=== PATIENT | male | born 1965 | race Caucasian/White ===

== ENCOUNTER 2017-02-26 10:34 | Emergency (ER) | payer MEDICARE ==
[~2017-02-26] VITALS: Ht 177.8 cm; Wt 61.1 kg
[~2017-02-26 10:34] MED LIST: LORTA10 PO; NEUR800T PO; PROT40TA PO; SUCR1TAB PO; TIZA4 PO; VERA80TA PO
[2017-02-26 10:48] VITALS: BP 137/91; PULSE 55; RESP 18; TEMP 98; O2SAT 99
[2017-02-26] MEDS ORDERED: GABA800T PO (11:45)
[2017-02-26] MEDS ORDERED: PERC10TA27 PO (11:45)
[2017-02-26] MEDS ORDERED: LORA1TAB12 PO (11:45)
[2017-02-26] MEDS ORDERED: METO10TA PO (11:45)
[2017-02-26] MEDS ORDERED: SODIUM CHLOR 0.9% 1000 ML INJ 1,000 ML IV SCH (11:49)
--- NOTE | 2017-02-26 11:56 | PD ---
HPI Chief Complaint: GI Complaint Time Seen by Provider: 11:39 Travel History International Travel<30 days: No Contact w/Intl Traveler<30days: No Traveled to known affect area: No History of Present Illness HPI 51-year-old male complains of epigastric abdominal pain and nausea vomiting. Patient states that the pain started yesterday. Patient states the pain burning pain started throughout epigastric area with radiation to lower abdomen. Patient denies any fever chills. Patient denies any dysuria or frequency. Patient denies any headache. Patient denies any chest pain or shortness of breath. Patient has history of chronic low back pain and has been seen by neurologist and has been taking hydrocodone for back pain. Patient states that he has frequent recurrence of abdominal pain, almost monthly. Patient has been seen at [facility] for abdominal pain. Patient states that he had endoscopy done in the past. Patient states that he was told that he has peptic ulcer disease. On a scale of 1-10 the pain is a 10. PFSH Past Medical History Hx Anticoagulant Therapy: No Arthritis: Yes Autoimmune Disease: No Anxiety: Yes Depression: Yes Cancer: No Cardiovascular Problems: No High Cholesterol: Yes Cerebrovascular Accident: No Diabetes: No Endocrine: No Genitourinary: No Headaches: Yes Hepatitis: No Hiatal Hernia: No Immune Disorder: No Musculoskeletal: Yes (BACK AND NECK PAIN ; ARTHRITIS) Neurologic: No Psychiatric: No Reproductive: No Respiratory: No Migraines: No Seizures: No Thyroid Disease: No Influenza Vaccination: No Past Surgical History Body Medical Devices: SCREWS LOWER BACK POSSIBLY TAKEN OUT 11/19/13 Neurologic Surgery: Yes (POSTERIOR CERVICAL FUSION C51989; 08/27 LUMBAR FUSION) Pacemaker: No Other Surgery: Yes Social History Alcohol Use: Yes (rare) Tobacco Use: Yes (1 PPD) Substance Use: Yes (thc) Allergies-Medications (Allergen,Severity, Reaction): Coded Allergies: Tramadol (Verified Allergy, Intermediate, ITCHING, HEDACHE, 02/26/17) Meloxicam (Verified Allergy, Mild, HEADACHE, 02/26/17) Reported Meds & Prescriptions Reported Meds & Active Scripts Active Reported Lorazepam 1 Mg Tab 1 Mg PO Q6H PRN Metoclopramide (Metoclopramide HCl) 10 Mg Tab 10 Mg PO DAILY Percocet (Oxycodone-Acetaminophen) 10-325 mg Tab 1 Tab PO QID Gabapentin 800 Mg Tab 800 Mg PO QID Review of Systems General / Constitutional: No: Fever Eyes: No: Visual changes HENT: No: Headaches Cardiovascular: No: Chest Pain or Discomfort Respiratory: No: Shortness of Breath Gastrointestinal: Positive: Nausea, Vomiting, Abdominal Pain Genitourinary: No: Dysuria Musculoskeletal: No: Pain Skin: No Rash Neurologic: No: Weakness Psychiatric: No: Depression Endocrine: No: Polydipsia Hematologic/Lymphatic: No: Easy Bruising Physical Exam Narrative GENERAL: Well-nourished, well-developed patient. SKIN: Focused skin assessment warm/dry. HEAD: Normocephalic. EYES: No scleral icterus. No injection or drainage. NECK: Supple, trachea midline. No JVD or lymphadenopathy. CARDIOVASCULAR: Regular rate and rhythm without murmurs, gallops, or rubs. RESPIRATORY: Breath sounds equal bilaterally. No accessory muscle use. GASTROINTESTINAL: Abdomen soft, nondistended. Patient has moderate tenderness on palpation epigastric area. No rebound tenderness. No mass. MUSCULOSKELETAL: No cyanosis, or edema. BACK: Nontender without obvious deformity. No CVA tenderness. Neurologic exam normal. Data Data Last Documented VS Vital Signs Date Time Temp Pulse Resp B/P Pulse Ox O2 Delivery O2 Flow Rate FiO2 02/26/17 12:13 16 99 Room Air 02/26/17 12:12 54 140/68 02/26/17 10:48 98.0 Orders Complete Blood Count With Diff (02/26/17 11:49) Comprehensive Metabolic Panel (02/26/17 11:49) Lipase (02/26/17 11:49) Prothrombin Time / Inr (Pt) (02/26/17 11:49) Act Partial Throm Time (Ptt) (02/26/17 11:49) Urinalysis - C+S If Indicated (02/26/17 11:49) Iv Access Insert/Monitor (02/26/17 11:49) Ecg Monitoring (02/26/17 11:49) Oximetry (02/26/17 11:49) Morphine Inj (Morphine Inj) (02/26/17 12:00) Ondansetron Inj (Zofran Inj) (02/26/17 12:00) Pantoprazole Inj (Protonix Inj) (02/26/17 12:00) Sodium Chlor 0.9% 1000 Ml Inj (Ns 1000 M (02/26/17 11:49) Labs Laboratory Tests Test 02/26/17 02/26/17 11:45 11:50 White Blood Count 12.9 TH/MM3 Red Blood Count 4.77 MIL/MM3 Hemoglobin 15.1 GM/DL Hematocrit 45.5 % Mean Corpuscular Volume 95.4 FL Mean Corpuscular Hemoglobin 31.7 PG Mean Corpuscular Hemoglobin 33.2 % Concent Red Cell Distribution Width 13.0 % Platelet Count 372 TH/MM3 Mean Platelet Volume 7.7 FL Neutrophils (%) (Auto) 86.7 % Lymphocytes (%) (Auto) 11.0 % Monocytes (%) (Auto) 1.5 % Eosinophils (%) (Auto) 0.4 % Basophils (%) (Auto) 0.4 % Neutrophils # (Auto) 11.1 TH/MM3 Lymphocytes # (Auto) 1.4 TH/MM3 Monocytes # (Auto) 0.2 TH/MM3 Eosinophils # (Auto) 0.1 TH/MM3 Basophils # (Auto) 0.1 TH/MM3 CBC Comment DIFF FINAL Differential Comment Prothrombin Time 10.6 SEC Prothromb Time International 1.0 RATIO Ratio Activated Partial 29.9 SEC Thromboplast Time Sodium Level 142 MEQ/L Potassium Level 3.9 MEQ/L Chloride Level 106 MEQ/L Carbon Dioxide Level 27.4 MEQ/L Anion Gap 9 MEQ/L Blood Urea Nitrogen 11 MG/DL Creatinine 0.84 MG/DL Estimat Glomerular Filtration 96 ML/MIN Rate Random Glucose 127 MG/DL Calcium Level 9.6 MG/DL Total Bilirubin 0.3 MG/DL Aspartate Amino Transf 16 U/L (AST/SGOT) Alanine Aminotransferase 29 U/L (ALT/SGPT) Alkaline Phosphatase 90 U/L Total Protein 8.4 GM/DL Albumin 4.1 GM/DL Lipase 139 U/L Urine Collection Type CLEAN CATCH Urine Color YELLOW Urine Turbidity CLEAR Urine pH 5.5 Urine Specific [place] 1.019 Urine Protein NEG mg/dL Urine Glucose (UA) NEG mg/dL Urine Ketones 15 mg/dL Urine Occult Blood NEG Urine Nitrite NEG Urine Bilirubin NEG Urine Leukocyte Esterase NEG Urine RBC 0-3 /hpf Urine Squamous Epithelial 0-5 /hpf Cells Microscopic Urinalysis Comment CULT NOT INDICATED Urine Collection Time 11:50 MDM Medical Decision Making Medical Screen Exam Complete: Yes Emergency Medical Condition: Yes Interpretation(s) 12:22 PM. CBC WBC 12.9. 86 neutrophil. CMP within normal limit. UA is negative. Differential Diagnosis Differential diagnosis including gastritis, PUD, pancreatitis, cholecystitis, colitis, UTI, pyelonephritis. Narrative Course 51-year-old male with recurrent epigastric abdominal pain. History of peptic ulcer disease. Normal saline solution 1 25 cc an hour. Protonix 40 mg IV. Morphine 2 mg IV. Zofran 4 mg IV. Diagnosis Primary Impression: Abdominal pain Qualified Code: R10.13 - Epigastric pain Additional Impression: History of peptic ulcer disease Patient Instructions: General Instructions Additional Instructions: Take medications as directed. Follow-up with personal physician and GI specialist. Return if worse. Med/Other Pt SpecificInfo: Prescription(s) given Scripts Dicyclomine (Bentyl)10 Mg Cap10 Mg PO TID PRN (PAIN SCALE 1 TO 10) #21 CAP Ref 0 Prov:Wilbur Marroquin MD 02/26/17 Sucralfate (Carafate)1 Gm Tab1 Gm PO QID #120 TAB Ref 0 On empty stomach Prov:Wilbur Marroquin MD 02/26/17 Pantoprazole (Protonix)20 Mg Tab20 Mg PO DAILY #30 TAB Prov:Wilbur Marroquin MD 02/26/17 Disposition: 01 DISCHARGE HOME Condition: Stable Wilbur Marroquin MD Feb 26, 2017 11:55
[2017-02-26 12:00] LABS: BLOOD, URINE NEG (NEG); GLUCOSE,URINE NEG (NEG); KETONE, URINE 15 mg/dL (NEG); NITRITE,URINE NEG (NEG); PH, URINE 5.5 (5.0-8.5)
[2017-02-26] MEDS ORDERED: ONDANSETRON HCL 4 MG/2 ML VIAL IVP ONE (12:00)
[2017-02-26] MEDS ORDERED: PANTOPRAZOLE SODIUM 40 MG VIAL IVP ONE (12:00)
[2017-02-26] MEDS ORDERED: MORPHINE SULFATE 4 MG/ML INJ IV PUSH ONE (12:00)
[2017-02-26 12:01] LABS: AUTOMATED NEUTROPHIL # 11.1 TH/MM3 (1.8-7.7); BASOPHIL # 0.1 TH/MM3 (0-0.2); BASOPHIL % 0.4 % (0.0-2.0); EOSINOPHIL # 0.1 TH/MM3 (0-0.4); EOSINOPHIL % 0.4 % (0.0-4.0); HEMATOCRIT 45.5 % (39.0-51.0); HEMO FLAGS DIFF FINAL; LYMPHOCYTE # 1.4 TH/MM3 (1.0-4.8); MEAN CELL VOLUME 95.4 FL (80.0-100.0); MEAN CORPUSCULAR HEMOGLOBIN 31.7 PG (27.0-34.0); MEAN CORPUSCULAR HGB CONC 33.2 % (32.0-36.0); MONO % 1.5 % (0.0-8.0); NEUT % 86.7 % (16.0-70.0); PLATELET COUNT 372 TH/MM3 (150-450); RED BLOOD COUNT 4.77 MIL/MM3 (4.50-5.90); WHITE BLOOD COUNT 12.9 TH/MM3 (4.0-11.0)
[2017-02-26 12:09] LABS: CHLORIDE 106 MEQ/L (98-107); POTASSIUM 3.9 MEQ/L (3.5-5.1); SODIUM (NA) 142 MEQ/L (136-145)
[2017-02-26 12:09] LABS: METHOD OF COLLECTION CLEAN CATCH; RBC, URINE 0-3 /hpf (0-3); SQUAMOUS EPITHELIAL CELL URINE 0-5 /hpf (0-5); URINE COLOR YELLOW (YELLW/STRAW)
[2017-02-26 12:10] LABS: COMMENT (UR) CULT NOT INDICATED; CULTURE IF INDICATED CULT NOT INDICATED
[2017-02-26 12:12] VITALS: BP 140/68; PULSE 54; RESP 16; O2SAT 98
[2017-02-26 12:13] VITALS: RESP 16; O2SAT 99
[2017-02-26 12:13] LABS: ANION GAP 9 MEQ/L (5-15); BICARBONATE 27.4 MEQ/L (21.0-32.0)
[2017-02-26 12:14] LABS: APTT (PATIENT) 29.9 SEC (24.3-30.1); BLOOD UREA NITROGEN 11 MG/DL (7-18); PROTHROMBIN TIME - PATIENT 10.6 SEC (9.8-11.6)
[2017-02-26 12:16] LABS: ALT (GPT) 29 U/L (12-78); AST (GOT) 16 U/L (15-37); GLOMERULAR FILTRATION RATE 96 ML/MIN (>89)
[2017-02-26 12:18] LABS: TOTAL BILIRUBIN ADULT 0.3 MG/DL (0.2-1.0)
[2017-02-26 12:19] LABS: ALKALINE PHOSPHATASE 90 U/L (45-117)
[2017-02-26] MEDS ORDERED: CARA1TAB6 PO (12:28)
[2017-02-26] MEDS ORDERED: PANT20 PO (12:28)
[2017-02-26] MEDS ORDERED: DICY10 PO (12:28)
[2017-02-26 12:56] VITALS: BP 136/70; PULSE 55; RESP 16; O2SAT 98
== END 2017-02-26 13:27 | disposition home or self-care (01) ==
LOC: PHED 10:34
DX: R10.13 Epigastric pain (principal); F17.200 Nicotine dependence, unspecified, uncomplicated; Z87.11 Personal history of peptic ulcer disease
CPT/HCPCS: 80053; 81001; 83690; 85025; 85610; 85730; 96361; 96374; 96375; 99284; C9113; J2270; J2405; J7030